=== PATIENT | male | born 1990 | race Caucasian/White ===

== ENCOUNTER 2022-01-21 08:49 | Emergency (ER) | payer OTHER ==
[~2022-01-21] VITALS: Ht 190.5 cm; Wt 123.6 kg
[2022-01-21 10:33] LABS: MEAN CORPUSCULAR HEMOGLOBIN 30.4 pg (27.0-33.0); MEAN CORPUSCULAR HGB CONC 34.9 g/dl (32.0-36.5); MEAN CORPUSCULAR VOLUME 87.1 fl (80.0-96.0); PLATELET COUNT, AUTOMATED 260 10^3/uL (150-450)
[2022-01-21 10:41] LABS: HEMATOCRIT 49.3 % (42.0-52.0); HEMOGLOBIN 17.2 g/dl (13.5-17.5); RED BLOOD COUNT 5.66 10^6/uL (4.30-6.10)
[2022-01-21 10:59] LABS: BLOOD UREA NITROGEN 13 MG/DL (7-18); CALCIUM LEVEL 9.5 MG/DL (8.5-10.1); CARBON DIOXIDE LEVEL 25 MEQ/L (21-32); CHLORIDE LEVEL 110 MEQ/L (98-107); CREATININE FOR GFR 0.84 MG/DL (0.70-1.30); GLOMERULAR FILTRATION RATE > 60.0 (>60); GLUCOSE, FASTING 221 MG/DL (70-100); POTASSIUM SERUM 4.3 MEQ/L (3.5-5.1); SODIUM LEVEL 141 MEQ/L (136-145)
[2022-01-21 11:24] LABS: HEMOGLOBIN A1c 9.5 %
[2022-01-21] MEDS ORDERED: diphenhydrAMINE 50MG/ML VIAL (J1200) IV STA (12:07)
[2022-01-21] MEDS ORDERED: metFORMIN (GLUCOPHAGE) 1000MG TABLET PO ONE (12:10)
[2022-01-21] MEDS ORDERED: NS 1,000 ML IV ONE (12:10)
[2022-01-21] MEDS ORDERED: KETOROLAC 30 MG/ML 1ML VIAL IV ONE (12:10)
[2022-01-21] MEDS ORDERED: METOCLOPRAMIDE INJ 10MG/2ML VIAL (J2765 PER 1) IV ONE (12:10)
[2022-01-21 12:24] LABS: MAGNESIUM LEVEL 2.3 MG/DL (1.8-2.4)
[2022-01-21] MEDS ORDERED: METF500T13 PO (14:01)
[2022-01-21 14:13] VITALS: BP 100/65
== END 2022-01-21 14:15 | disposition home or self-care (01) ==
LOC: M ED 08:49
DX: R51.9 Headache, unspecified (principal); E11.9 Type 2 diabetes mellitus without complications; I10 Essential (primary) hypertension; F17.200 Nicotine dependence, unspecified, uncomplicated
CPT/HCPCS: 70450; 80048; 83036; 83735; 85027; 87428; 96374; 96375; 99284; J1200; J1885; J2765